=== PATIENT | male | born 1950 | race Two or more races ===

== ENCOUNTER 2020-06-02 14:52 | Outpatient (CLI) | payer MEDICARE, OTHER | END 2020-06-02 23:59 | disposition home or self-care (01) | LOC: RAD 14:52 | PROVIDERS: ATTEND Internal Medicine Interventional Cardiology | DX: J98.11 Atelectasis (principal); I70.0 Atherosclerosis of aorta; I77.819 Aortic ectasia, unspecified site; M47.819 Spondylosis without myelopathy or radiculopathy, site unspecified | CPT/HCPCS: 71046 ==